=== PATIENT | male | born 1980 | race Two or more races ===

== ENCOUNTER 2025-03-30 23:45 | Inpatient (IN) | payer OTHER ==
[~2025-03-30] VITALS: Ht 185.4 cm; Wt 72.6 kg
[2025-03-31] MEDS ORDERED: FLAGYL I.V500 MG/100
[2025-03-31] MEDS ORDERED: FAMOTIDINE/PF 20 MG in 0.9 % SODIUM CHLORIDE 8 ML IV PUSH STA (00:33)
[2025-03-31] MEDS ORDERED: MORPHINE SULFATE 4 MG/ML VIAL IV ONE ×2 (00:45→08:30)
[2025-03-31] MEDS ORDERED: 0.9 % SODIUM CHLORIDE 1,000 ML IV SCH (00:45)
[2025-03-31] MEDS ORDERED: ONDANSETRON HCL 2 MG/ML VIAL IV ONE (00:45)
[2025-03-31 01:17] LABS: BASO % 0.4 % (0.1-1.2); EOS # 0.03 (0.04-0.54); EOS % 0.2 % (0.7-7.0); LYMPH # 1.50 (1.18-3.74); LYMPH % 11.7 % (19.3-53.1); MEAN PLATELET VOLUME 9.50 fl (9.4-12.4); MONO # 0.56 (0.24-0.82); MONO % 4.4 % (4.7-12.5); NEUT # 10.65 (1.56-6.13); NEUT % 83.0 % (34.0-71.1); RED CELL DISTRIBUTION WIDTH 11.2 % (11.6-14.4)
[2025-03-31 02:23] LABS: COVID-19 AG NEGATIVE (NEGATIVE)
[2025-03-31 04:52] LABS: INR 1.13
[2025-03-31 05:00] LABS: ALT/SGPT 17.0 U/L (12-78); AST/SGOT 12.0 U/L (15-37); BILIRUBIN TOTAL 0.57 mg/dL (0.3-1.2); BILIRUBIN,CONJUGATED 0.17 mg/dL (0.0-0.2); BUN CREA RATIO 8.0 (7.0-25.0); CREATININE SERUM 0.74 mg/dL (0.70-1.30); GFR 115.99; GLOBULINA 4.3 G/DL (2.4-3.5); GLUCOSE FASTING 102.0 mg/dL (65-100); OSMOLALITY SERUM 281.0 MOSM/KG (275-295)
[2025-03-31] MEDS ORDERED: PIPERACILLIN/TAZOBACTAM SODIUM 3.375 GM in 0.9 % SODIUM CHLORIDE 100 ML IV SCH (06:00)
[2025-03-31] MEDS ORDERED: MORPHINE SULFATE 4 MG/ML CARTRIDGE IV PRN (06:00)
[2025-03-31] MEDS ORDERED: hydrALAZINE HCL 20 MG VIAL IV ONE ×2 (06:45→17:45)
[2025-03-31] MEDS ORDERED: ONDANSETRON HCL 2 MG/ML VIAL IV PRN (07:45)
[2025-03-31] MEDS ORDERED: ENALAPRILAT DIHYDRATE 2.5 MG/2 ML VIAL IV ONE ×2 (08:15→15:45)
[2025-03-31] MEDS ORDERED: CIPROFLOXACIN IN 5 % DEXTROSE 200 ML IV SCH (17:52)
[2025-03-31] MEDS ORDERED: ONDANSETRON HCL 4 MG in 0.9 % SODIUM CHLORIDE 50 ML IV PRN (18:00)
[2025-03-31] MEDS ORDERED: RINGERS SOLUTION,LACTATED 1,000 ML IV SCH (18:00)
[2025-03-31] MEDS ORDERED: POTASSIUM CHLORIDE 20MEQ/100ML H2O PB IV ONE (18:00)
[2025-03-31] MEDS ORDERED: METHYLPREDNISOLONE SOD SUCC 125 MG VIAL IV ONE (18:00)
[2025-03-31] MEDS ORDERED: hydrALAZINE HCL 20 MG VIAL IV PRN (18:00)
[2025-03-31 20:12] VITALS: BP 153/90
[2025-03-31 20:52] LABS: INR 1.21
[2025-03-31 21:26] LABS: COVID-19 AG NEGATIVE (NEGATIVE)
[2025-03-31 22:28] VITALS: BP 170/97
[2025-04-01 01:11] VITALS: BP 158/95; O2SAT 97
[2025-04-01 08:19] VITALS: BP 177/103
[2025-04-01 08:58] LABS: URINE APPEARANCE Clear; URINE BILIRRUBIN Negative (NEGATIVE); URINE BLOOD Trace; URINE COLOR Dark Yellow; URINE GLUCOSE Negative (NEGATIVE); URINE LEUKOCYTE Negative; URINE NITRATE Negative; URINE PROTEIN 30 (NEGATIVE); URINE UROBILINOGEN 0.2 E.U./dl
[2025-04-01] MEDS ORDERED: FAMOTIDINE/PF 20 MG in 0.9 % SODIUM CHLORIDE 8 ML IV PUSH SCH ×2 (09:00→21:00)
[2025-04-01 09:03] LABS: URINE BACTERIA 5.9 uL (0.0-1933); URINE EPITHELIAL CELLS 30.9 uL (0.0-38.8); URINE RBC 79.9 uL (0.0-20.8); URINE WBC 26.7 uL (0.0-23.2)
[2025-04-01 09:59] LABS: URINE CAST 0.14 uL (0.0-1.40); URINE KETONE 40 (NEGATIVE)
[2025-04-01 10:00] LABS: URINE MUCUS HEAVY
[2025-04-01] MEDS ORDERED: hydrALAZINE HCL 20 MG VIAL IV PRN (10:14)
[2025-04-01 19:22] VITALS: BP 160/89; O2SAT 96
[2025-04-02 01:00] VITALS: BP 156/78; O2SAT 97
[2025-04-02 03:20] VITALS: BP 157/96
[2025-04-02 09:04] VITALS: BP 148/87; O2SAT 97
[2025-04-02] MEDS ORDERED: MORPHINE SULFATE 4 MG/ML CARTRIDGE IV PRN (10:30)
[2025-04-02] MEDS ORDERED: KETOROLAC TROMETHAMINE 30 MG VIAL IV PRN (10:45)
[2025-04-02 15:06] LABS: BUN CREA RATIO 20.0 (7.0-25.0); CREATININE SERUM 0.79 mg/dL (0.70-1.30); GFR 107.56; GLUCOSE FASTING 84.0 mg/dL (65-100); OSMOLALITY SERUM 280.0 MOSM/KG (275-295)
[2025-04-02 17:39] VITALS: BP 145/85; O2SAT 98
[2025-04-02] MEDS ORDERED: LORazepam 2 MG/ML VIAL IV SCH (21:00)
[2025-04-03 02:29] VITALS: BP 150/84; O2SAT 97
[2025-04-03 09:13] VITALS: BP 152/75
[2025-04-03 16:56] LABS: BUN CREA RATIO 21.0 (7.0-25.0); CHOL HDL RATIO 2.4 (0-5.0); CREATININE SERUM 0.85 mg/dL (0.70-1.30); GFR 98.85; GLUCOSE FASTING 82.0 mg/dL (65-100); HDL 54.0 mg/dl (40-60); LDL 60.0 mg/dl (0-130); OSMOLALITY SERUM 279.0 MOSM/KG (275-295); VLDL 14.0 (0-39)
[2025-04-03] MEDS ORDERED: AMINO ACIDS 4.25 %/DEXTROSE 5% 1,000 ML PERIFERAL SCH (17:00)
[2025-04-03] MEDS ORDERED: TUBERCULIN,PURIF.PROT.DERIV. 10 SKIN.TEST SKIN.TEST ID NR (17:30)
[2025-04-03 17:49] VITALS: BP 152/93; O2SAT 98
[2025-04-03 18:25] LABS: BASO % 0.4 % (0.1-1.2); EOS # 0.10 (0.04-0.54); EOS % 1.1 % (0.7-7.0); LYMPH # 1.91 (1.18-3.74); LYMPH % 20.9 % (19.3-53.1); MEAN PLATELET VOLUME 9.50 fl (9.4-12.4); MONO # 0.94 (0.24-0.82); MONO % 10.3 % (4.7-12.5); NEUT # 6.11 (1.56-6.13); NEUT % 67.0 % (34.0-71.1); RED CELL DISTRIBUTION WIDTH 11.2 % (11.6-14.4)
[2025-04-03 19:15] LABS: ALT/SGPT 15.0 U/L (12-78); AST/SGOT 10.0 U/L (15-37); BILIRUBIN TOTAL 0.71 mg/dL (0.3-1.2); BUN CREA RATIO 24.0 (7.0-25.0); CREATININE SERUM 0.84 mg/dL (0.70-1.30); GFR 100.21; GLOBULINA 3.7 G/DL (2.4-3.5); GLUCOSE FASTING 79.0 mg/dL (65-100); OSMOLALITY SERUM 281.0 MOSM/KG (275-295)
[2025-04-03] MEDS ORDERED: FAT EMULSIONS 250 ML IV SCH (21:00)
[2025-04-04 08:00] VITALS: BP 120/60; O2SAT 100
[2025-04-04 16:50] VITALS: BP 159/86
[2025-04-04] MEDS ORDERED: LORazepam 2 MG/ML VIAL IV SCH (21:00)
[2025-04-05 00:50] VITALS: BP 152/89; O2SAT 98
[2025-04-05 09:44] VITALS: BP 154/98
[2025-04-05] MEDS ORDERED: AA 3.31 %/D9.8W/FAT/E-LYTES 10 2,053 ML IV SCH (17:00)
[2025-04-05 17:35] VITALS: BP 151/102; O2SAT 98
[2025-04-05] MEDS ORDERED: MEROPENEM 500 MG/VIAL VIAL IV SCH (18:00)
[2025-04-06 01:33] VITALS: BP 139/88; O2SAT 97
[2025-04-06 09:00] VITALS: BP 151/91
[2025-04-06] MEDS ORDERED: DIATRIZOATE MEGLUMINE, SODIUM 30 ML BOTTLE PO NR (13:30)
[2025-04-06 18:07] VITALS: BP 143/95
[2025-04-07 01:15] VITALS: BP 145/89
[2025-04-07 09:14] VITALS: BP 145/85
[2025-04-07 18:01] VITALS: BP 142/85
[2025-04-08 01:05] VITALS: BP 135/83
[2025-04-08] MEDS ORDERED: NA PHOS,M-B/NA PHOS,DI-BA 1 BOTTLE ENEMA RECTAL NR (06:00)
[2025-04-08 07:05] LABS: ALT/SGPT 13.0 U/L (12-78); AST/SGOT 13.0 U/L (15-37); BILIRUBIN TOTAL 0.36 mg/dL (0.3-1.2); BUN CREA RATIO 14.0 (7.0-25.0); CHOL HDL RATIO 3.0 (0-5.0); CREATININE SERUM 0.69 mg/dL (0.70-1.30); GFR 125.74; GLOBULINA 3.2 G/DL (2.4-3.5); GLUCOSE FASTING 87.0 mg/dL (65-100); HDL 36.0 mg/dl (40-60); LDL 49.0 mg/dl (0-130); OSMOLALITY SERUM 287.0 MOSM/KG (275-295); VLDL 23.0 (0-39)
[2025-04-08] MEDS ORDERED: MIDAZOLAM HCL 2 MG/2 ML VIAL IV ONE (08:15)
[2025-04-08] MEDS ORDERED: fentaNYL CITRATE 50 MCG/ML AMPUL IV PUSH ONE (08:15)
[2025-04-08 08:45] LABS: UREA CLEARANCE 59.3 ML/MIN
[2025-04-08] MEDS ORDERED: FAMOTIDINE/PF 20 MG in 0.9 % SODIUM CHLORIDE 8 ML IV PUSH SCH (09:00)
[2025-04-08 09:44] VITALS: BP 135/82
[2025-04-08 12:53] LABS: BASO % 0.6 % (0.1-1.2); EOS # 0.14 (0.04-0.54); EOS % 1.9 % (0.7-7.0); LYMPH # 2.19 (1.18-3.74); LYMPH % 30.3 % (19.3-53.1); MEAN PLATELET VOLUME 9.70 fl (9.4-12.4); MONO # 0.61 (0.24-0.82); MONO % 8.4 % (4.7-12.5); NEUT # 4.22 (1.56-6.13); NEUT % 58.5 % (34.0-71.1); RED CELL DISTRIBUTION WIDTH 11.1 % (11.6-14.4)
[2025-04-08 13:18] LABS: INR 1.27
[2025-04-08 22:57] VITALS: BP 135/89
[2025-04-09 02:15] VITALS: BP 122/82; O2SAT 97
[2025-04-09 08:45] VITALS: BP 137/87; O2SAT 99
[2025-04-09 16:58] VITALS: BP 149/964
[2025-04-09] MEDS ORDERED: FAMOTIDINE/PF 20 MG/2 ML VIAL IV PUSH STA (21:36)
[2025-04-10 02:30] VITALS: BP 144/85; O2SAT 97
[2025-04-10] MEDS ORDERED: FAMOTIDINE/PF 20 MG in 0.9 % SODIUM CHLORIDE 8 ML IV PUSH SCH (09:00)
[2025-04-10 09:16] VITALS: BP 150/84; O2SAT 99
== END 2025-04-10 16:03 | disposition home or self-care (01) | DRG 389 ==
LOC: ER 23:45 → EDBD 03-31 00:17 → MEDI 03-31 18:10
PROVIDERS: General Practice; Internal Medicine Infectious Disease; ADMIT Internal Medicine; ATTEND Internal Medicine
PROC: BW21YZZ Computerized Tomography (CT Scan) of Abdomen and Pelvis using Other Contrast (ICD-10-PCS; 2025-03-31)
PROC: 02HV33Z Insertion of Infusion Device into Superior Vena Cava, Percutaneous Approach (ICD-10-PCS; 2025-04-04)
PROC: BW21YZZ Computerized Tomography (CT Scan) of Abdomen and Pelvis using Other Contrast (ICD-10-PCS; 2025-04-06)
PROC: 0DJD8ZZ Inspection of Lower Intestinal Tract, Via Natural or Artificial Opening Endoscopic (ICD-10-PCS; principal; 2025-04-08)
DX: K56.609 Unspecified intestinal obstruction, unspecified as to partial versus complete obstruction (principal); K57.32 Diverticulitis of large intestine without perforation or abscess without bleeding; I10 Essential (primary) hypertension; E11.9 Type 2 diabetes mellitus without complications; Z79.4 Long term (current) use of insulin; K25.9 Gastric ulcer, unspecified as acute or chronic, without hemorrhage or perforation

== ENCOUNTER 2025-06-20 11:45 | Inpatient (IN) | payer OTHER ==
[~2025-06-20] VITALS: Ht 185.4 cm; Wt 83.9 kg
[~2025-06-20 11:45] MED LIST: FLAGYL I.V500 MG/100
[2025-06-20] MEDS ORDERED: CARAFATE1 GM PO (12:35)
[2025-06-20] MEDS ORDERED: NEXIUM 24HR20 M1 PO (12:35)
[2025-06-20 12:36] VITALS: BP 167/98
[2025-06-20] MEDS ORDERED: PROBIOTIC ACID1 EAC2 PO (12:36)
[2025-06-26] MEDS ORDERED: METRONIDAZOLE/SODIUM CHLORIDE 500 MG/100 ML PIGGYBACK IV ONE ×2 (08:37→15:42)
[2025-06-26] MEDS ORDERED: CEFTRIAXONE SODIUM 2,000 MG VIAL ONE (08:37)
[2025-06-26] MEDS ORDERED: ENALAPRILAT DIHYDRATE 1.25 MG/ML VIAL IV ONE (12:18)
[2025-06-26] MEDS ORDERED: SUGAMMADEX SODIUM 200 MG/2 ML VIAL IV ONE (12:59)
[2025-06-26] MEDS ORDERED: MORPHINE SULFATE 4 MG/ML CARTRIDGE IV PRN ×2 (13:30→20:47)
[2025-06-26] MEDS ORDERED: ONDANSETRON HCL 2 MG/ML VIAL IV PRN (13:30)
[2025-06-26] MEDS ORDERED: RINGERS SOLUTION,LACTATED 1,000 ML IV SCH (13:30)
[2025-06-26] MEDS ORDERED: OxyCODONE HCL 5 MG TABLET (ROXICODONE) PO PRN (13:30)
[2025-06-26] MEDS ORDERED: ACETAMINOPHEN 500 MG GEL..CAP PO SCH (14:00)
[2025-06-26] MEDS ORDERED: ENALAPRILAT DIHYDRATE 1.25 MG/ML VIAL IV STA (14:10)
[2025-06-26] MEDS ORDERED: ENALAPRILAT DIHYDRATE 1.25 MG/ML VIAL IV PRN (14:15)
[2025-06-26] MEDS ORDERED: ONDANSETRON HCL 2 MG/ML VIAL ONE (14:25)
[2025-06-26 15:22] LABS: BASO % 0.2 % (0.1-1.2); EOS # 0.08 (0.04-0.54); EOS % 0.5 % (0.7-7.0); LYMPH # 1.76 (1.18-3.74); LYMPH % 10.1 % (19.3-53.1); MEAN PLATELET VOLUME 9.80 fl (9.4-12.4); MONO # 0.65 (0.24-0.82); MONO % 3.7 % (4.7-12.5); NEUT # 14.76 (1.56-6.13); NEUT % 85.0 % (34.0-71.1); RED CELL DISTRIBUTION WIDTH 11.9 % (11.6-14.4)
[2025-06-26] MEDS ORDERED: METOCLOPRAMIDE HCL 5 MG/ML VIAL ONE (15:29)
[2025-06-26] MEDS ORDERED: LABETALOL HCL 100 MG/20 ML ML IV STA (16:31)
[2025-06-26] MEDS ORDERED: AMLODIPINE BESYLATE 5 MG TABLET PO STA (16:33)
[2025-06-26] MEDS ORDERED: LABETALOL HCL 100 MG/20 ML ML ONE (16:36)
[2025-06-26] MEDS ORDERED: CELECOXIB 200 MG CAPSULE PO ONE (16:38)
[2025-06-26] MEDS ORDERED: HYOSCYAMINE SULFATE 0.125 MG TAB.SUBL SL SCH (17:00)
[2025-06-26] MEDS ORDERED: METRONIDAZOLE/SODIUM CHLORIDE 500 MG/100 ML PIGGYBACK IV SCH (17:00)
[2025-06-26] MEDS ORDERED: METOCLOPRAMIDE HCL 5 MG/ML VIAL IV SCH (17:00)
[2025-06-26] MEDS ORDERED: CELECOXIB 200 MG CAPSULE PO SCH ×2 (17:00→21:00)
[2025-06-26] MEDS ORDERED: GABAPENTIN 300 MG CAPSULE PO SCH (17:00)
[2025-06-26] MEDS ORDERED: CLEVIDIPINE BUTYRATE 100 ML IV SCH (17:45)
[2025-06-26] MEDS ORDERED: KETOROLAC TROMETHAMINE 30 MG VIAL IV STA (17:49)
[2025-06-26] MEDS ORDERED: KETOROLAC TROMETHAMINE 30 MG VIAL ONE (18:09)
[2025-06-26] MEDS ORDERED: CIPROFLOXACIN IN 5 % DEXTROSE 400 MG/200 ML PIGGYBAG IV ONE (19:36)
[2025-06-26] MEDS ORDERED: FAMOTIDINE/PF 20 MG/2 ML VIAL ONE (19:36)
[2025-06-26 20:47] VITALS: BP 167/98; O2SAT 98
[2025-06-26] MEDS ORDERED: CIPROFLOXACIN IN 5 % DEXTROSE 400 MG/200 ML PIGGYBAG IV SCH (21:00)
[2025-06-26] MEDS ORDERED: FAMOTIDINE/PF 20 MG/2 ML VIAL IV PUSH SCH (21:00)
[2025-06-26] MEDS ORDERED: ORPHENADRINE CITRATE 30 MG/ML AMPUL IM ONE (21:00)
[2025-06-26 22:04] VITALS: BP 168/90; O2SAT 98
[2025-06-26 23:32] VITALS: BP 177/91; O2SAT 100
[2025-06-27] VITALS (24 sets, daily range): BP systolic 116–1650; BP diastolic 59–92; O2SAT 98–100
[2025-06-27] MEDS ORDERED: MORPHINE SULFATE 2 MG,MORPHINE SULFATE 4 MG IV PRN (07:00)
[2025-06-27 07:05] LABS: BASO % 0.1 % (0.1-1.2); EOS # 0.01 (0.04-0.54); EOS % 0.1 % (0.7-7.0); LYMPH # 1.52 (1.18-3.74); LYMPH % 9.6 % (19.3-53.1); MEAN PLATELET VOLUME 10.30 fl (9.4-12.4); MONO # 1.10 (0.24-0.82); MONO % 7.0 % (4.7-12.5); NEUT # 13.05 (1.56-6.13); NEUT % 82.8 % (34.0-71.1); RED CELL DISTRIBUTION WIDTH 11.5 % (11.6-14.4)
[2025-06-27 07:29] LABS: BUN CREA RATIO 10.0 (7.0-25.0); CREATININE SERUM 0.68 mg/dL (0.70-1.30); GFR 127.27; GLUCOSE FASTING 134.0 mg/dL (65-100); OSMOLALITY SERUM 276.0 MOSM/KG (275-295)
[2025-06-27] MEDS ORDERED: CELECOXIB 200 MG CAPSULE PO SCH (09:00)
[2025-06-27] MEDS ORDERED: LACTOBACILLUS ACIDOPHILUS 1 CAP CAP PO SCH (09:00)
[2025-06-27] MEDS ORDERED: LOSARTAN POTASSIUM 50 MG TABLET PO NR (13:00)
[2025-06-27 16:02] LABS: T4 TOTAL 9.2 UG/DL (4.5-12.1); TSH 0.742 uIU/mL (0.358-3.74)
[2025-06-27] MEDS ORDERED: ENOXAPARIN SODIUM 40 MG/0.4 ML SYRINGE SUBCUTANEO SCH (17:00)
[2025-06-27] MEDS ORDERED: LOSARTAN POTASSIUM 25 MG TABLET PO ONE (21:00)
[2025-06-28 04:00] VITALS: BP 123/75; O2SAT 100
[2025-06-28 07:45] VITALS: BP 117/75; O2SAT 99
[2025-06-28] MEDS ORDERED: ENOXAPARIN SODIUM 40 MG/0.4 ML SYRINGE SUBCUTANEO SCH (09:00)
[2025-06-28] MEDS ORDERED: LOSARTAN POTASSIUM 50 MG TABLET PO SCH ×2 (09:00)
[2025-06-28 12:58] VITALS: BP 123/80; O2SAT 96
[2025-06-28 15:12] VITALS: BP 146/87
[2025-06-28 16:00] VITALS: BP 150/82; O2SAT 100
[2025-06-28 19:16] VITALS: BP 165/88; O2SAT 98
[2025-06-28] MEDS ORDERED: MELATONIN 5 MG TABLET PO SCH (21:00)
[2025-06-29 00:03] VITALS: BP 133/77; O2SAT 99
[2025-06-29 06:50] LABS: BASO % 0.4 % (0.1-1.2); EOS # 0.29 (0.04-0.54); EOS % 4.2 % (0.7-7.0); LYMPH # 1.49 (1.18-3.74); LYMPH % 21.6 % (19.3-53.1); MEAN PLATELET VOLUME 9.60 fl (9.4-12.4); MONO # 0.64 (0.24-0.82); MONO % 9.3 % (4.7-12.5); NEUT # 4.42 (1.56-6.13); NEUT % 64.1 % (34.0-71.1); RED CELL DISTRIBUTION WIDTH 11.5 % (11.6-14.4)
[2025-06-29 08:00] VITALS: BP 162/98; O2SAT 99
[2025-06-29] MEDS ORDERED: AMLODIPINE BESYLATE 5 MG TABLET PO SCH (09:00)
[2025-06-29 09:39] LABS: BUN CREA RATIO 22.0 (7.0-25.0); CREATININE SERUM 0.79 mg/dL (0.70-1.30); GFR 107.05; GLUCOSE FASTING 92.0 mg/dL (65-100); OSMOLALITY SERUM 282.0 MOSM/KG (275-295)
[2025-06-29 15:52] VITALS: BP 153/93; O2SAT 99
[2025-06-29 23:57] VITALS: BP 147/79; O2SAT 99
[2025-06-30 08:00] VITALS: BP 155/73; O2SAT 98
[2025-06-30] MEDS ORDERED: AMLODIPINE BESYL5 MG PO (11:42)
[2025-06-30] MEDS ORDERED: LOSARTAN POTASS50 MG PO (11:43)
[2025-06-30] MEDS ORDERED: INTESTINEX680 M1 PO (11:46)
[2025-06-30] MEDS ORDERED: CELECOXIB200 MG PO (11:46)
[2025-06-30] MEDS ORDERED: TRAM1TAB98 PO (11:46)
[2025-07-02 20:07] LABS: normeta 265.6 pg/mL (0.0-218.9)
[2025-07-03 16:11] LABS: ALDOSTERONE SERUM < 1.0 ng/dL (0.0-30.0)
[2025-07-04 00:09] LABS: RENIN ACTIVITY 0.231 ng/mL/hr (0.167-5.380)
== END 2025-06-30 15:57 | disposition home or self-care (01) | DRG 330 ==
LOC: SURG 11:45 → O/R 06-26 08:00 → ICU 06-26 20:12 → SURH 06-28 18:50
PROVIDERS: Internal Medicine Geriatric Medicine; ADMIT Surgery; ATTEND Surgery
PROC: 0DBP4ZZ Excision of Rectum, Percutaneous Endoscopic Approach (ICD-10-PCS; 2025-06-26)
PROC: B246ZZZ Ultrasonography of Right and Left Heart (ICD-10-PCS; 2025-06-26)
PROC: 0DJD8ZZ Inspection of Lower Intestinal Tract, Via Natural or Artificial Opening Endoscopic (ICD-10-PCS; 2025-06-26)
PROC: 0DTN4ZZ Resection of Sigmoid Colon, Percutaneous Endoscopic Approach (ICD-10-PCS; principal; 2025-06-26 07:00)
PROC: BT4JZZZ Ultrasonography of Kidneys and Bladder (ICD-10-PCS; 2025-06-27)
DX: K57.92 Diverticulitis of intestine, part unspecified, without perforation or abscess without bleeding (principal); I16.9 Hypertensive crisis, unspecified; K52.9 Noninfective gastroenteritis and colitis, unspecified; R19.4 Change in bowel habit; R14.0 Abdominal distension (gaseous); K62.89 Other specified diseases of anus and rectum

== ENCOUNTER 2025-07-03 05:36 | Inpatient (IN) | payer OTHER ==
[~2025-07-03] VITALS: Ht 185.4 cm; Wt 83.9 kg
[~2025-07-03 05:36] MED LIST changes: +AMLODIPINE BESYL5 MG PO; +CARAFATE1 GM PO; +CELECOXIB200 MG PO; +INTESTINEX680 M1 PO; +LOSARTAN POTASS50 MG PO; +NEXIUM 24HR20 M1 PO; +PROBIOTIC ACID1 EAC2 PO; +TRAM1TAB98 PO
[2025-07-03] MEDS ORDERED: MORPHINE SULFATE 4 MG/ML CARTRIDGE IV STA (06:38)
[2025-07-03] MEDS ORDERED: PROMETHAZINE HCL 50 MG/ML AMPUL IM STA (06:39)
[2025-07-03] MEDS ORDERED: 0.9 % SODIUM CHLORIDE 1,000 ML IV ONE (06:45)
[2025-07-03] MEDS ORDERED: PROMETHAZINE HCL 50 MG/ML AMPUL IM ONE (07:19)
[2025-07-03] MEDS ORDERED: PIPERACILLIN/TAZOBACTAM SODIUM 3.375 GM VIAL IV ONE ×2 (08:00→15:16)
[2025-07-03] MEDS ORDERED: PIPERACILLIN/TAZOBACTAM SODIUM 3.375 GM in DEXTROSE 5 % IN WATER 100 ML IV SCH (08:00)
[2025-07-03 08:06] LABS: INR 1.03
[2025-07-03 08:07] LABS: ALT/SGPT 31.0 U/L (12-78); AST/SGOT 21.0 U/L (15-37); BILIRUBIN TOTAL 0.6 mg/dL (0.3-1.2); BILIRUBIN,CONJUGATED 0.15 mg/dL (0.0-0.2); BUN CREA RATIO 19.0 (7.0-25.0); CREATININE SERUM 0.68 mg/dL (0.70-1.30); GFR 127.27; GLOBULINA 4.5 G/DL (2.4-3.5); GLUCOSE FASTING 128.0 mg/dL (65-100); OSMOLALITY SERUM 281.0 MOSM/KG (275-295)
[2025-07-03 08:48] LABS: BASO % 0.2 % (0.1-1.2); EOS # 0.09 (0.04-0.54); EOS % 0.7 % (0.7-7.0); LYMPH # 1.00 (1.18-3.74); LYMPH % 7.8 % (19.3-53.1); MEAN PLATELET VOLUME 9.70 fl (9.4-12.4); MONO # 0.41 (0.24-0.82); MONO % 3.2 % (4.7-12.5); NEUT # 11.20 (1.56-6.13); NEUT % 87.8 % (34.0-71.1); RED CELL DISTRIBUTION WIDTH 11.4 % (11.6-14.4)
[2025-07-03] MEDS ORDERED: ENALAPRILAT DIHYDRATE 2.5 MG/2 ML VIAL IV STA (08:50)
[2025-07-03] MEDS ORDERED: ENALAPRILAT DIHYDRATE 1.25 MG/ML VIAL IV ONE ×2 (09:12→12:55)
[2025-07-03] MEDS ORDERED: METOCLOPRAMIDE HCL 5 MG/ML VIAL IV SCH (10:29)
[2025-07-03] MEDS ORDERED: GABAPENTIN 300 MG CAPSULE PO SCH (10:29)
[2025-07-03] MEDS ORDERED: HYOSCYAMINE SULFATE 0.125 MG TAB.SUBL SL SCH (10:29)
[2025-07-03] MEDS ORDERED: RINGERS SOLUTION,LACTATED 1,000 ML IV SCH (10:30)
[2025-07-03] MEDS ORDERED: ONDANSETRON HCL 2 MG/ML VIAL IV PRN (10:30)
[2025-07-03] MEDS ORDERED: LACTOBACILLUS ACIDOPHILUS 1 CAP CAP PO SCH (10:30)
[2025-07-03] MEDS ORDERED: MORPHINE SULFATE 4 MG/ML CARTRIDGE IV PRN (10:30)
[2025-07-03] MEDS ORDERED: OxyCODONE HCL 5 MG TABLET (ROXICODONE) PO PRN (10:30)
[2025-07-03] MEDS ORDERED: PANTOPRAZOLE SODIUM 40 MG/VIAL VIAL IV SCH (10:45)
[2025-07-03 12:49] LABS: URINE APPEARANCE Clear; URINE BILIRRUBIN Negative (NEGATIVE); URINE BLOOD Small; URINE COLOR Yellow; URINE GLUCOSE Negative (NEGATIVE); URINE KETONE 15 (NEGATIVE); URINE LEUKOCYTE Negative; URINE NITRATE Negative; URINE PROTEIN Negative (NEGATIVE); URINE UROBILINOGEN 0.2 E.U./dl
[2025-07-03 12:54] LABS: URINE RBC 69.9 uL (0.0-20.8)
[2025-07-03] MEDS ORDERED: METOCLOPRAMIDE HCL 5 MG/ML VIAL ONE (12:55)
[2025-07-03] MEDS ORDERED: LACTOBACILLUS ACIDOPHILUS 1 CAP CAP PO ONE (12:55)
[2025-07-03] MEDS ORDERED: HYOSCYAMINE SULFATE 0.125 MG TAB.SUBL ONE (12:55)
[2025-07-03 12:56] LABS: URINE BACTERIA 3.5 uL (0.0-1933); URINE CAST 0.00 uL (0.0-1.40); URINE EPITHELIAL CELLS 0.0 uL (0.0-38.8); URINE WBC 1.6 uL (0.0-23.2)
[2025-07-03] MEDS ORDERED: LOSARTAN POTASSIUM 50 MG TABLET PO STA (13:58)
[2025-07-03] MEDS ORDERED: AMLODIPINE BESYLATE 5 MG TABLET PO STA (13:59)
[2025-07-03] MEDS ORDERED: ENALAPRILAT DIHYDRATE 1.25 MG/ML VIAL IV PRN (14:00)
[2025-07-03 14:34] VITALS: BP 180/90
[2025-07-03 16:35] VITALS: BP 188/98; O2SAT 99
[2025-07-03] MEDS ORDERED: LABETALOL HCL 100 MG/20 ML ML IV NR (17:15)
[2025-07-03] MEDS ORDERED: ENALAPRILAT DIHYDRATE 1.25 MG/ML VIAL IV NR (17:15)
[2025-07-03 19:00] VITALS: BP 154/80; O2SAT 97
[2025-07-04] VITALS (14 sets, daily range): BP systolic 134–209; BP diastolic 67–106; O2SAT 98–100
[2025-07-04 06:55] LABS: BASO % 0.4 % (0.1-1.2); EOS # 0.09 (0.04-0.54); EOS % 0.8 % (0.7-7.0); LYMPH # 2.50 (1.18-3.74); LYMPH % 21.7 % (19.3-53.1); MEAN PLATELET VOLUME 9.60 fl (9.4-12.4); MONO # 0.77 (0.24-0.82); MONO % 6.7 % (4.7-12.5); NEUT # 8.05 (1.56-6.13); NEUT % 70.1 % (34.0-71.1); RED CELL DISTRIBUTION WIDTH 11.3 % (11.6-14.4)
[2025-07-04 07:12] LABS: BUN CREA RATIO 16.0 (7.0-25.0); CREATININE SERUM 0.77 mg/dL (0.70-1.30); GFR 110.26; GLUCOSE FASTING 95.0 mg/dL (65-100); OSMOLALITY SERUM 283.0 MOSM/KG (275-295)
[2025-07-04] MEDS ORDERED: POLYETHYLENE GLYCOL 3350 17 GM BLIST.PACK PO NR (09:00)
[2025-07-04] MEDS ORDERED: AMLODIPINE BESYLATE 5 MG TABLET PO SCH (09:00)
[2025-07-04] MEDS ORDERED: PANTOPRAZOLE SODIUM 40 MG TABLET.DR PO SCH ×2 (09:00→21:00)
[2025-07-04] MEDS ORDERED: LOSARTAN POTASSIUM 50 MG TABLET PO SCH (09:00)
[2025-07-04] MEDS ORDERED: LOSARTAN POTASSIUM 100 MG TABLET PO SCH (09:00)
[2025-07-04] MEDS ORDERED: MAGNESIUM HYDROXIDE 30 ML BLIST.PACK PO NR (09:00)
[2025-07-04] MEDS ORDERED: SODIUM CHLORIDE 0.45 % 1,000 ML IV SCH (09:30)
[2025-07-04] MEDS ORDERED: LABETALOL HCL 100 MG/20 ML ML IV STA (12:01)
[2025-07-04] MEDS ORDERED: CLEVIDIPINE BUTYRATE 100 ML IV SCH (12:15)
[2025-07-04] MEDS ORDERED: NITROGLYCERIN IN 5 % DEXTROSE 50 MG/250 ML BOTTLE IV ONE (13:05)
[2025-07-04] MEDS ORDERED: NITROGLYCERIN IN 5 % DEXTROSE 250 ML IV SCH ×2 (13:15→13:45)
[2025-07-04] MEDS ORDERED: AA 2.36%/D6.8W/FAT/E-LYTES NO9 1,440 ML IV SCH (17:00)
[2025-07-04 17:11] LABS: BUN CREA RATIO 14.0 (7.0-25.0); CHOL HDL RATIO 3.8 (0-5.0); CREATININE SERUM 0.84 mg/dL (0.70-1.30); GFR 99.73; GLUCOSE FASTING 112.0 mg/dL (65-100); HDL 44.0 mg/dl (40-60); LDL 107.0 mg/dl (0-130); OSMOLALITY SERUM 280.0 MOSM/KG (275-295); VLDL 18.0 (0-39)
[2025-07-04] MEDS ORDERED: MORPHINE SULFATE 4 MG/ML VIAL IV PRN (19:45)
[2025-07-04] MEDS ORDERED: AMLODIPINE BESYLATE 10 MG TABLET PO STA (21:42)
[2025-07-05] VITALS (14 sets, daily range): BP systolic 134–181; BP diastolic 76–102; O2SAT 98–100
[2025-07-05] MEDS ORDERED: ACETAMINOPHEN 500 MG GEL..CAP PO PRN (09:30)
[2025-07-05] MEDS ORDERED: MORPHINE SULFATE 4 MG/ML VIAL IV PRN (11:15)
[2025-07-05] MEDS ORDERED: HYDROCHLOROTHIAZIDE 12.5 MG CAPSULE PO SCH (12:00)
[2025-07-05] MEDS ORDERED: PANTOPRAZOLE SODIUM 80 MG in 0.9 % SODIUM CHLORIDE 100 ML IV SCH (12:30)
[2025-07-05] MEDS ORDERED: AMLODIPINE BESYLATE 5 MG TABLET PO SCH (21:00)
[2025-07-06 04:00] VITALS: BP 129/84; O2SAT 100
[2025-07-06 07:30] VITALS: BP 114/58; O2SAT 100
[2025-07-06 07:48] LABS: BASO % 0.6 % (0.1-1.2); EOS # 0.34 (0.04-0.54); EOS % 4.4 % (0.7-7.0); LYMPH # 2.31 (1.18-3.74); LYMPH % 29.8 % (19.3-53.1); MEAN PLATELET VOLUME 9.30 fl (9.4-12.4); MONO # 0.75 (0.24-0.82); MONO % 9.7 % (4.7-12.5); NEUT # 4.27 (1.56-6.13); NEUT % 55.1 % (34.0-71.1); RED CELL DISTRIBUTION WIDTH 11.1 % (11.6-14.4)
[2025-07-06 07:52] LABS: ALT/SGPT 18.0 U/L (12-78); AST/SGOT 14.0 U/L (15-37); BILIRUBIN TOTAL 0.56 mg/dL (0.3-1.2); BUN CREA RATIO 22.0 (7.0-25.0); CREATININE SERUM 0.65 mg/dL (0.70-1.30); GFR 134.07; GLOBULINA 3.6 G/DL (2.4-3.5); GLUCOSE FASTING 103.0 mg/dL (65-100); OSMOLALITY SERUM 278.0 MOSM/KG (275-295)
[2025-07-06 15:30] VITALS: BP 138/92; O2SAT 98
[2025-07-06 20:00] VITALS: BP 133/82; O2SAT 100
[2025-07-06] MEDS ORDERED: MELATONIN 5 MG TABLET PO SCH (21:00)
[2025-07-06 23:19] VITALS: BP 135/87; O2SAT 100
[2025-07-07 04:00] VITALS: BP 156/82; O2SAT 100
[2025-07-07 08:06] VITALS: BP 134/84; O2SAT 98
[2025-07-07 12:07] VITALS: BP 127/71; O2SAT 100
[2025-07-07 16:00] VITALS: BP 134/89; O2SAT 99
[2025-07-07 20:00] VITALS: BP 136/85; O2SAT 100
[2025-07-07 23:32] VITALS: BP 137/89; O2SAT 98
[2025-07-08 06:59] LABS: BASO % 0.6 % (0.1-1.2); EOS # 0.36 (0.04-0.54); EOS % 5.3 % (0.7-7.0); LYMPH # 2.55 (1.18-3.74); LYMPH % 37.6 % (19.3-53.1); MEAN PLATELET VOLUME 9.50 fl (9.4-12.4); MONO # 0.58 (0.24-0.82); MONO % 8.6 % (4.7-12.5); NEUT # 3.23 (1.56-6.13); NEUT % 47.6 % (34.0-71.1); RED CELL DISTRIBUTION WIDTH 11.1 % (11.6-14.4)
[2025-07-08 07:17] VITALS: BP 135/90; O2SAT 100
[2025-07-08 07:21] LABS: INR 1.11
[2025-07-08 07:30] LABS: ALT/SGPT 17.0 U/L (12-78); AST/SGOT 13.0 U/L (15-37); BILIRUBIN TOTAL 0.56 mg/dL (0.3-1.2); BILIRUBIN,CONJUGATED 0.13 mg/dL (0.0-0.2); BUN CREA RATIO 20.0 (7.0-25.0); CHOL HDL RATIO 4.1 (0-5.0); CREATININE SERUM 0.69 mg/dL (0.70-1.30); GFR 125.14; GLOBULINA 3.5 G/DL (2.4-3.5); GLUCOSE FASTING 97.0 mg/dL (65-100); HDL 34.0 mg/dl (40-60); LDL 85.0 mg/dl (0-130); OSMOLALITY SERUM 282.0 MOSM/KG (275-295); VLDL 22.0 (0-39)
[2025-07-08 08:05] LABS: UREA CLEARANCE 54.2 ML/MIN
[2025-07-08 16:25] VITALS: BP 132/87; O2SAT 98
[2025-07-08 18:00] VITALS: BP 156/72; O2SAT 99
[2025-07-09 04:01] VITALS: BP 122/72; O2SAT 98
[2025-07-09] MEDS ORDERED: PANTOPRAZOLE SODIUM 40 MG/VIAL VIAL IV SCH (09:00)
== END 2025-07-09 08:44 | disposition home or self-care (01) | DRG 392 ==
LOC: ER 05:36 → SEC-K 10:50 → SURG 10:50 → ICU 07-04 17:51 → MEDJ 07-08 18:48
PROVIDERS: General Practice; Internal Medicine Geriatric Medicine; ADMIT Surgery; ATTEND Surgery
PROC: BW21YZZ Computerized Tomography (CT Scan) of Abdomen and Pelvis using Other Contrast (ICD-10-PCS; principal; 2025-07-03)
PROC: 4A12X4Z Monitoring of Cardiac Electrical Activity, External Approach (ICD-10-PCS; 2025-07-04)
PROC: 02HV33Z Insertion of Infusion Device into Superior Vena Cava, Percutaneous Approach (ICD-10-PCS; 2025-07-05)
DX: K57.32 Diverticulitis of large intestine without perforation or abscess without bleeding (principal); I16.9 Hypertensive crisis, unspecified; K92.0 Hematemesis; K59.09 Other constipation

== ENCOUNTER 2025-07-16 08:01 | Inpatient (IN) | payer OTHER ==
[~2025-07-16] VITALS: Ht 185.4 cm; Wt 77.1 kg
[2025-07-16] MEDS ORDERED: COZAAR100 MG PO (08:16)
[2025-07-16] MEDS ORDERED: HYOSCYAMINE0.125 M2 PO (08:17)
[2025-07-16] MEDS ORDERED: PROTONIX40 MG PO (08:17)
[2025-07-16] MEDS ORDERED: 0.9 % SODIUM CHLORIDE 1,000 ML IV STA (09:27)
[2025-07-16] MEDS ORDERED: ONDANSETRON HCL 2 MG/ML VIAL IV STA (09:28)
[2025-07-16] MEDS ORDERED: FAMOTIDINE/PF 20 MG/2 ML VIAL IV STA (09:28)
[2025-07-16] MEDS ORDERED: ENALAPRILAT DIHYDRATE 1.25 MG/ML VIAL IV ONE (09:30)
[2025-07-16] MEDS ORDERED: MORPHINE SULFATE 4 MG/ML CARTRIDGE IV ONE (09:30)
[2025-07-16 10:28] LABS: BASO % 0.4 % (0.1-1.2); EOS # 0.01 (0.04-0.54); EOS % 0.1 % (0.7-7.0); LYMPH # 0.97 (1.18-3.74); LYMPH % 11.9 % (19.3-53.1); MEAN PLATELET VOLUME 9.40 fl (9.4-12.4); MONO # 0.20 (0.24-0.82); MONO % 2.4 % (4.7-12.5); NEUT # 6.94 (1.56-6.13); NEUT % 85.0 % (34.0-71.1); RED CELL DISTRIBUTION WIDTH 11.2 % (11.6-14.4)
[2025-07-16 10:34] LABS: ERYTHROCYTE SEDIMENTATION RATE 4 mm/hr (0-15)
[2025-07-16 10:51] LABS: INR 1.04
[2025-07-16 11:12] LABS: ALT/SGPT 19.0 U/L (12-78); AST/SGOT 13.0 U/L (15-37); BILIRUBIN TOTAL 0.64 mg/dL (0.3-1.2); BILIRUBIN,CONJUGATED 0.17 mg/dL (0.0-0.2); BUN CREA RATIO 19.0 (7.0-25.0); CREATININE SERUM 0.69 mg/dL (0.70-1.30); GFR 125.14; GLUCOSE FASTING 119.0 mg/dL (65-100); OSMOLALITY SERUM 279.0 MOSM/KG (275-295)
[2025-07-16 12:46] LABS: URINE APPEARANCE Clear; URINE BILIRRUBIN Negative (NEGATIVE); URINE COLOR Yellow; URINE GLUCOSE Negative (NEGATIVE); URINE LEUKOCYTE Negative; URINE NITRATE Negative; URINE PROTEIN Trace (NEGATIVE); URINE UROBILINOGEN 0.2 E.U./dl
[2025-07-16 12:51] LABS: URINE BACTERIA 5.9 uL (0.0-1933); URINE RBC 61.5 uL (0.0-20.8); URINE WBC 2.4 uL (0.0-23.2)
[2025-07-16 12:55] LABS: URINE BLOOD Trace; URINE CAST 0.43 uL (0.0-1.40); URINE EPITHELIAL CELLS 1.0 uL (0.0-38.8); URINE KETONE 40 (NEGATIVE)
[2025-07-16] MEDS ORDERED: LACTULOSE 20 G/30 ML BLIST.PACK PO ONE (13:30)
[2025-07-16] MEDS ORDERED: CIPROFLOXACIN IN 5 % DEXTROSE 400 MG/200 ML PIGGYBAG IV ONE ×2 (13:30→13:44)
[2025-07-16] MEDS ORDERED: METRONIDAZOLE/SODIUM CHLORIDE 500 MG/100 ML PIGGYBACK IV ONE ×2 (13:30→13:44)
[2025-07-16] MEDS ORDERED: LACTULOSE 20 G/30 ML BLIST.PACK ONE (13:44)
[2025-07-16] MEDS ORDERED: DEXTROSE 5 % IN WATER 1,000 ML IV SCH (14:15)
[2025-07-16] MEDS ORDERED: PANTOPRAZOLE SODIUM 40 MG/VIAL VIAL IV STA (14:27)
[2025-07-16] MEDS ORDERED: LOSARTAN/HYDROCHLOROTHIAZIDE 1 TAB TABLET PO SCH (14:27)
[2025-07-16] MEDS ORDERED: ENALAPRILAT DIHYDRATE 1.25 MG/ML VIAL IV PRN (14:30)
[2025-07-16] MEDS ORDERED: ONDANSETRON HCL 2 MG/ML VIAL IV PRN (14:45)
[2025-07-16 19:32] VITALS: BP 100/80
[2025-07-16] MEDS ORDERED: LACTULOSE 20 G/30 ML BLIST.PACK PO SCH (21:00)
[2025-07-17] MEDS ORDERED: LACTULOSE 20 G/30 ML BLIST.PACK ONE (00:36)
[2025-07-17] MEDS ORDERED: HYOSCYAMINE SULFATE 0.125 MG TAB.SUBL PO ONE (01:15)
[2025-07-17] MEDS ORDERED: MORPHINE SULFATE 4 MG/ML CARTRIDGE IV PRN (01:30)
[2025-07-17 02:00] VITALS: BP 141/89; O2SAT 99
[2025-07-17] MEDS ORDERED: PANTOPRAZOLE SODIUM 40 MG/VIAL VIAL IV SCH (06:00)
[2025-07-17 06:25] LABS: BASO % 0.5 % (0.1-1.2); EOS # 0.31 (0.04-0.54); EOS % 4.2 % (0.7-7.0); LYMPH # 1.75 (1.18-3.74); LYMPH % 23.6 % (19.3-53.1); MEAN PLATELET VOLUME 9.40 fl (9.4-12.4); MONO # 0.51 (0.24-0.82); MONO % 6.9 % (4.7-12.5); NEUT # 4.77 (1.56-6.13); NEUT % 64.5 % (34.0-71.1); RED CELL DISTRIBUTION WIDTH 11.2 % (11.6-14.4)
[2025-07-17 06:57] LABS: ALT/SGPT 16 U/L (12-78); AST/SGOT 9 U/L (15-37); BILIRUBIN TOTAL 0.80 mg/dL (0.3-1.2); BUN CREA RATIO 14 (7.0-25.0); CREATININE SERUM 0.77 mg/dL (0.70-1.30); GFR 110.26; GLOBULINA 3.7 G/DL (2.4-3.5); GLUCOSE FASTING 97 mg/dL (65-100); OSMOLALITY SERUM 277 MOSM/KG (275-295)
[2025-07-17 07:00] VITALS: BP 146/94; O2SAT 100
[2025-07-17] MEDS ORDERED: MIDAZOLAM HCL 2 MG/2 ML VIAL IV STA (09:32)
[2025-07-17 10:10] VITALS: BP 116/72; O2SAT 99
[2025-07-17] MEDS ORDERED: POLYETHYLENE GLYCOL 3350 17 GM BLIST.PACK PO SCH (21:00)
[2025-07-18 03:00] VITALS: BP 122/77; O2SAT 99
[2025-07-18 11:41] VITALS: BP 110/79; O2SAT 99
[2025-07-18] MEDS ORDERED: PROTONIX40 MG PO (12:43)
[2025-07-18] MEDS ORDERED: LOSARTAN-HCTZ1 EAC2 PO (12:43)
[2025-07-18] MEDS ORDERED: POLY119PG PO (12:43)
[2025-07-18] MEDS ORDERED: HYOSCYAMINE0.125 M2 PO (12:43)
[2025-07-21 18:06] LABS: CHROMOGRANIN A 42.0 ng/mL (0.0-101.8)
== END 2025-07-18 13:13 | disposition home or self-care (01) | DRG 392 ==
LOC: ER 08:01 → SEC-K 16:21
PROVIDERS: General Practice; Internal Medicine Endocrinology, Diabetes & Metabolism; ADMIT Internal Medicine Geriatric Medicine; ATTEND Internal Medicine Geriatric Medicine
PROC: BW21YZZ Computerized Tomography (CT Scan) of Abdomen and Pelvis using Other Contrast (ICD-10-PCS; 2025-07-16)
PROC: BW40ZZZ Ultrasonography of Abdomen (ICD-10-PCS; 2025-07-16)
PROC: 0DJ08ZZ Inspection of Upper Intestinal Tract, Via Natural or Artificial Opening Endoscopic (ICD-10-PCS; principal; 2025-07-17)
DX: K59.00 Constipation, unspecified (principal); I10 Essential (primary) hypertension

== ENCOUNTER 2025-07-31 20:51 | Inpatient (IN) | payer OTHER ==
[~2025-07-31] VITALS: Ht 175.3 cm; Wt 74.8 kg
[~2025-07-31 20:51] MED LIST changes: +COZAAR100 MG PO; +HYOSCYAMINE0.125 M2 PO; +LOSARTAN-HCTZ1 EAC2 PO; +POLY119PG PO; +PROTONIX40 MG PO
--- NOTE | 2025-07-31 21:20 | NUR ---
PACINETE ALERTA Y ORINETADO X3 QUIEN REFIERE VENIR POR DOLOR ABDOMINAL Y VOMITOS X2 EN EL LEWIS DE HOY.
[2025-07-31] MEDS ORDERED: ONDANSETRON HCL 2 MG/ML VIAL IV STA (22:08)
[2025-07-31] MEDS ORDERED: FAMOTIDINE/PF 20 MG/2 ML VIAL IV STA (22:08)
[2025-07-31] MEDS ORDERED: 0.9 % SODIUM CHLORIDE 1,000 ML IV STA (22:08)
[2025-07-31] MEDS ORDERED: MORPHINE SULFATE 4 MG/ML VIAL IV ONE (22:15)
[2025-08-01] MEDS ORDERED: FAMOTIDINE/PF 20 MG/2 ML VIAL ONE (00:40)
[2025-08-01] MEDS ORDERED: ONDANSETRON HCL 2 MG/ML VIAL ONE (00:40)
--- NOTE | 2025-08-01 01:34 | NUR ---
PTE EVALUADO POR EL , KRISTINA QUIEN ORDENA TRATAMIEBNTO LA CUAL SE EJECUTA. SE MANTIENE BAJO OBSERVACION.SE LE DA MEDICAMENTO DE MORFINA.
[2025-08-01 01:56] LABS: BASO % 0.3 % (0.1-1.2); EOS # 0.02 (0.04-0.54); EOS % 0.2 % (0.7-7.0); LYMPH # 1.36 (1.18-3.74); LYMPH % 14.6 % (19.3-53.1); MEAN PLATELET VOLUME 10.00 fl (9.4-12.4); MONO # 0.31 (0.24-0.82); MONO % 3.3 % (4.7-12.5); NEUT # 7.60 (1.56-6.13); NEUT % 81.5 % (34.0-71.1); RED CELL DISTRIBUTION WIDTH 11.2 % (11.6-14.4)
[2025-08-01 02:04] LABS: INR 1.0
[2025-08-01 02:15] LABS: ERYTHROCYTE SEDIMENTATION RATE 13 mm/hr (0-15)
[2025-08-01 02:23] LABS: ALT/SGPT 24.0 U/L (12-78); AST/SGOT 13.0 U/L (15-37); BILIRUBIN TOTAL 0.54 mg/dL (0.3-1.2); BILIRUBIN,CONJUGATED 0.2 mg/dL (0.0-0.2); BUN CREA RATIO 19.0 (7.0-25.0); CREATININE SERUM 0.73 mg/dL (0.70-1.30); GFR 117.26; GLUCOSE FASTING 115.0 mg/dL (65-100); OSMOLALITY SERUM 283.0 MOSM/KG (275-295)
[2025-08-01] MEDS ORDERED: MORPHINE SULFATE 4 MG/ML VIAL IV STA (03:15)
[2025-08-01] MEDS ORDERED: PROMETHAZINE HCL 50 MG/ML AMPUL IM STA (03:16)
[2025-08-01] MEDS ORDERED: PROMETHAZINE HCL 50 MG/ML AMPUL IM ONE (03:18)
--- NOTE | 2025-08-01 03:39 | NUR ---
SE LE ADMINITRA MEDICMANTOS DE MORFINA Y NAUSES ACOMPNADO DE VOMITOS. SE LE CANSELA CT CON CONTRATRE PO , SE LE REALIZARA SOLAMENTE CON CONTRATE IV. SE MANTIENE BAJO OBSERVCION.
[2025-08-01 04:31] LABS: URINE APPEARANCE Clear; URINE BILIRRUBIN Negative (NEGATIVE); URINE BLOOD Trace; URINE COLOR Yellow; URINE GLUCOSE Negative (NEGATIVE); URINE KETONE 15 (NEGATIVE); URINE LEUKOCYTE Trace; URINE NITRATE Negative; URINE PROTEIN Negative (NEGATIVE); URINE UROBILINOGEN 0.2 E.U./dl
[2025-08-01 04:33] LABS: URINE BACTERIA 5.7 uL (0.0-1933); URINE EPITHELIAL CELLS 4.2 uL (0.0-38.8); URINE RBC 53.6 uL (0.0-20.8); URINE WBC 5.5 uL (0.0-23.2)
[2025-08-01 04:36] LABS: URINE CAST 0.84 uL (0.0-1.40)
--- NOTE | 2025-08-01 07:31 | NUR ---
SE RECIBE PTE EN CAMA K9. SE OFRECE YORDAN PARA EVALUAR CONDICION. PTE CON IVF'S PATENTES, AREA SHANNAN DE EDEMA Y/O ERITEMA. EN ESPERA DE LECTURA DE CT. SE ALEISHA- TOREA POR CAMBIOS. BARANDAS ELEVADAS POR COVARRUBIAS SEGURIDAD.
[2025-08-01] MEDS ORDERED: ENALAPRILAT DIHYDRATE 2.5 MG/2 ML VIAL IV ONE (10:30)
[2025-08-01 10:40] VITALS: BP 160/110; O2SAT 100
[2025-08-01] MEDS ORDERED: RINGERS SOLUTION,LACTATED 1,000 ML IV SCH (10:45)
[2025-08-01] MEDS ORDERED: ENALAPRILAT DIHYDRATE 2.5 MG/2 ML VIAL IV PRN (10:45)
[2025-08-01] MEDS ORDERED: ENALAPRILAT DIHYDRATE 1.25 MG/ML VIAL IV ONE (10:49)
[2025-08-01 11:17] VITALS: BP 160/110
[2025-08-01] MEDS ORDERED: LABETALOL HCL 20MG/4ML SYRINGE IV STA (12:18)
[2025-08-01] MEDS ORDERED: ENALAPRILAT DIHYDRATE 1.25 MG/ML VIAL IV STA (12:19)
[2025-08-01] MEDS ORDERED: HYOSCYAMINE SULFATE 0.125 MG TAB.SUBL SL SCH (13:00)
[2025-08-01] MEDS ORDERED: LABETALOL HCL 100 MG/20 ML ML IV STA (13:15)
[2025-08-01] MEDS ORDERED: MORPHINE SULFATE 4 MG/ML VIAL IV PRN (19:15)
[2025-08-01 19:50] VITALS: BP 143/93; O2SAT 97
[2025-08-01] MEDS ORDERED: ACETAMINOPHEN 500 MG GEL..CAP PO SCH (20:00)
[2025-08-01] MEDS ORDERED: ONDANSETRON HCL 2 MG/ML VIAL IV PRN (20:00)
[2025-08-01] MEDS ORDERED: OxyCODONE HCL 5 MG TABLET (ROXICODONE) PO PRN (20:00)
[2025-08-01] MEDS ORDERED: FAMOTIDINE/PF 20 MG/2 ML VIAL IV PUSH SCH (21:00)
[2025-08-01] MEDS ORDERED: SIMETHICONE 125 MG CAPSULE PO SCH (21:00)
[2025-08-02 00:31] VITALS: BP 160/93; O2SAT 99
[2025-08-02] MEDS ORDERED: METOCLOPRAMIDE HCL 5 MG/ML VIAL IV SCH (01:00)
[2025-08-02] MEDS ORDERED: GABAPENTIN 300 MG CAPSULE PO SCH (01:00)
[2025-08-02 06:35] LABS: BASO % 0.2 % (0.1-1.2); EOS # 0.11 (0.04-0.54); EOS % 1.2 % (0.7-7.0); LYMPH # 1.79 (1.18-3.74); LYMPH % 19.0 % (19.3-53.1); MEAN PLATELET VOLUME 10.00 fl (9.4-12.4); MONO # 0.62 (0.24-0.82); MONO % 6.6 % (4.7-12.5); NEUT # 6.88 (1.56-6.13); NEUT % 72.8 % (34.0-71.1); RED CELL DISTRIBUTION WIDTH 11.3 % (11.6-14.4)
[2025-08-02 07:27] LABS: BUN CREA RATIO 14.0 (7.0-25.0); CREATININE SERUM 0.74 mg/dL (0.70-1.30); GFR 115.44; GLUCOSE FASTING 89.0 mg/dL (65-100); OSMOLALITY SERUM 282.0 MOSM/KG (275-295)
[2025-08-02] MEDS ORDERED: LACTOBACILLUS ACIDOPHILUS 1 CAP CAP PO SCH (09:00)
[2025-08-02] MEDS ORDERED: PANTOPRAZOLE SODIUM 40 MG/VIAL VIAL IV SCH (09:00)
[2025-08-02] MEDS ORDERED: LOSARTAN/HYDROCHLOROTHIAZIDE 1 TAB TABLET PO SCH (09:00)
[2025-08-02] MEDS ORDERED: HYOSCYAMINE SULFATE 0.125 MG TAB.SUBL SL SCH (09:00)
[2025-08-02 16:10] VITALS: BP 141/92; O2SAT 99
[2025-08-02] MEDS ORDERED: ENOXAPARIN SODIUM 40 MG/0.4 ML SYRINGE SUBCUTANEO SCH (17:00)
[2025-08-03] VITALS: BP 137/87; O2SAT 99
[2025-08-03 08:00] VITALS: BP 147/88; O2SAT 99
[2025-08-03] MEDS ORDERED: ENOXAPARIN SODIUM 40 MG/0.4 ML SYRINGE SUBCUTANEO SCH (09:00)
[2025-08-03 09:25] LABS: BASO % 0.4 % (0.1-1.2); EOS # 0.22 (0.04-0.54); EOS % 4.4 % (0.7-7.0); LYMPH # 1.49 (1.18-3.74); LYMPH % 29.8 % (19.3-53.1); MEAN PLATELET VOLUME 10.10 fl (9.4-12.4); MONO # 0.38 (0.24-0.82); MONO % 7.6 % (4.7-12.5); NEUT # 2.87 (1.56-6.13); NEUT % 57.4 % (34.0-71.1); RED CELL DISTRIBUTION WIDTH 11.2 % (11.6-14.4)
[2025-08-03 09:59] LABS: BUN CREA RATIO 16.0 (7.0-25.0); CREATININE SERUM 0.67 mg/dL (0.70-1.30); GFR 129.46; GLUCOSE FASTING 84.0 mg/dL (65-100); OSMOLALITY SERUM 282.0 MOSM/KG (275-295)
[2025-08-03 16:32] VITALS: BP 129/82; O2SAT 99
[2025-08-04 00:14] VITALS: BP 118/67; O2SAT 99
[2025-08-04 08:00] VITALS: BP 131/82; O2SAT 100
[2025-08-04] MEDS ORDERED: INTESTINEX680 M1 PO (11:43)
[2025-08-04] MEDS ORDERED: HYOSCYAMINE0.125 M1 SL (11:43)
== END 2025-08-04 12:10 | disposition home or self-care (01) | DRG 336 ==
LOC: ER 20:51 → SURH 08-01 10:42
PROVIDERS: General Practice; Internal Medicine Geriatric Medicine; ADMIT Surgery; ATTEND Surgery
PROC: BW21YZZ Computerized Tomography (CT Scan) of Abdomen and Pelvis using Other Contrast (ICD-10-PCS; 2025-07-31)
PROC: 0DQV4ZZ Repair Mesentery, Percutaneous Endoscopic Approach (ICD-10-PCS; 2025-08-01)
PROC: 0DNL4ZZ Release Transverse Colon, Percutaneous Endoscopic Approach (ICD-10-PCS; 2025-08-01)
PROC: 0DN84ZZ Release Small Intestine, Percutaneous Endoscopic Approach (ICD-10-PCS; principal; 2025-08-01 15:00)
DX: K46.0 Unspecified abdominal hernia with obstruction, without gangrene (principal); K55.8 Other vascular disorders of intestine; K56.51 Intestinal adhesions [bands], with partial obstruction; R18.8 Other ascites; I10 Essential (primary) hypertension